=== PATIENT | male | born 1970 | race Caucasian/White ===

== ENCOUNTER 2023-10-13 09:30 | Day surgery (SDC) | payer BC ==
[2023-10-13] MEDS ORDERED: Lactated Ringers 1,000 ML IV ONE ×2 (09:36→13:04)
[2023-10-13] MEDS: Lactated Ringers 1,000 ML IV SCH (09:42)
[2023-10-13] MEDS ORDERED: DIPRIVAN 200 MG/20 ML IV ONE ×4 (12:33→13:14)
[2023-10-13 14:02] VITALS: RESP 16; O2SAT 100
[2023-10-13 14:07] VITALS: BP 122/77; PULSE 50; TEMP 97.4
--- NOTE | 2023-10-14 08:23 | OP ---
SURGERY DATE/TIME: 10/13/2023 2922 - [id number] PREOPERATIVE DIAGNOSIS: Due for colorectal cancer screening. POSTOPERATIVE DIAGNOSIS: Large colon polyp. PROCEDURES: 1) Colonoscopy, difficult, due to a very large polyp with piecemeal colon polyp resection. 2) Tattoo injection. SURGEON: Jin Alonzo MD ANESTHESIA: IV anesthesia. PATIENT CONDITION: Stable. COMPLICATIONS: None. SPECIMENS: 1) Descending colon polyp, 5 mm. 2) Polyp at 23 to 25 cm in the colon. 3) Polyp base biopsies. INDICATIONS: Patient is a 52-year-old male who presents for colorectal cancer screening. FINDINGS: 1) Descending colon polyp, 5 mm, sessile, taken with a hot snare. 2) Large pedunculated 3 cm polyp at 23 to 25 cm from the anus that was unable to be taken in 1 piece. This was a piecemeal resection, very difficult. This is behind a fold for the base of the polyp that was taken piecemeal and then the base was then biopsied multiple times with the biopsy forceps. If any of the polyp base does have adenomatous changes, very concerning for possibly nonresected polyp. DESCRIPTION OF PROCEDURE AND FINDINGS: Patient was brought to the endoscopy suite. Routinely positioned, prepared, and time-out performed. Digital rectal exam is normal. Colonoscope was inserted and advanced to the terminal ileum. Pictures taken of the terminal ileum, appendiceal orifice, and ileocecal valve. This was a preparation [place] fair preparation in the ascending, transverse colon; good preparation descending, sigmoid. This is about a 50-minute withdrawal time due to very difficult polyp, but on withdrawal, a descending colon 5 mm sessile polyp taken with a hot snare. Then at 23 to 25 cm from the anal verge, there is a large pedunculated polyp occupying most of the lumen that was attempted to be snared. It was thought that it was around it to the base, but actually, it was just not the entire thing that was taken, then it was after that point taken piecemeal. It was very difficult to get around this polyp. It is not something that could just be lifted due to it being right behind the fold and the size of it, but eventually it was felt to be excised that the base of the polyp seemed like it was probably normal mucosa. That is biopsied multiple times with the biopsy forceps kind of circumferentially and sent as a separate specimen, polyp base. There is good hemostasis. The tattoo is then placed distal to the lesion on the opposite side of the lumen that is pictured. The rest of the colon is normal. Retroflexion normal. The patient tolerated the procedure well, was taken to Recovery in stable condition. RECOMMENDATIONS: Needs a followup in 2 weeks in office for pathology results. Again, if this polyp base is positive for adenomatous change, it is very concerning for unresected disease.
== END 2023-10-13 14:13 | disposition home or self-care (01) ==
LOC: SDC 09:30
PROVIDERS: ATTEND Surgery
DX: Z12.11 Encounter for screening for malignant neoplasm of colon (principal); D12.4 Benign neoplasm of descending colon; C21.0 Malignant neoplasm of anus, unspecified
CPT/HCPCS: J2704